=== PATIENT | female | born 1935 | race Caucasian/White ===

== ENCOUNTER 2017-09-15 23:16 | Inpatient (IN) | payer OTHER ==
[~2017-09-15] VITALS: Ht 157.5 cm; Wt 92.4 kg
[~2017-09-15 23:16] MED LIST: ASPIRIN EC325 MG PO; ASPIRIN81 M1 PO; BACTRIM,SEPT1 TABLET PO; BUMETANIDE 1 MG; BUMEX1 MG PO; CALCITRIOL0.25 MCG; COLCRYS0.6 MG PO; LIDODERM 5% P1 PATCH TD; LO-DOSE ASPIRIN81 M1 PO; LOTENSIN10 MG; LOTENSIN10 MG PO; LOW DOSE ASPIRI81 M2 PO; MULTIPLE VITAM1 EACH PO; PRAVASTATIN SOD40 MG; ROCALTROL0.25 MCG PO; SENNA-TIME S T1 EACH PO; TRAMADOL HCL50 MG PO; TRAMADOL-ACETA1 EACH; ULTRACET1 TABLET PO; VITAMIN D-32000 UNI1 PO; VITAMIN D1000 UNIT PO
[2017-09-16] VITALS (8 sets, daily range): BP systolic 129–180; BP diastolic 67–83
[2017-09-16 01:45] LABS: BASOPHIL COUNT 0.1 K/uL (0-0.1); EOSINOPHIL (%) 0.1 % (0-5); HEMATOCRIT 41.4 % (36.0-46.0); IMMATURE GRANULOCYTE (%) 0.6 % (0.0-0.7); IMMATURE GRANULOCYTE COUNT 0.1 K/uL; INSTRUMENT ABS NEUTROPHIL CT 15.2 K/uL; LYMPHOCYTE COUNT 1.3 K/uL (1.0-2.8); MCH 30.4 PG (29.0-34.0); MCHC 32.9 G/DL (30.0-36.0); MCV 92.4 FL (83-99); MEAN PLAT.VOLUME 10.3 uM^3 (9.5-12.4); MONOCYTE (%) 6.2 % (3-12); MONOCYTE COUNT 1.1 K/uL (0-0.8); NEUTROPHIL (%) 85.3 % (45-76); NEUTROPHIL COUNT 15.2 K/uL (1.8-6.4); PLATELET COUNT 215 K/uL (156-360); RBC DIS.WIDTH-CV 13.1 % (11.8-14.6); RBC DIS.WIDTH-SD 44.7 % (39-53); RED BLOOD COUNT 4.48 M/uL (3.80-5.20); WHITE BLOOD COUNT 17.8 K/uL (4.1-10.2)
[2017-09-16 01:57] LABS: CHLORIDE 105 mEq/L (99-109); SODIUM 138 mEq/L (136-147)
[2017-09-16 01:59] LABS: GLUCOSE 136 mg/dL (70-99)
[2017-09-16 02:00] LABS: ANION GAP 10 MEQ/L (2-14)
[2017-09-16 02:03] LABS: GFR ESTIMATE (CALCULATED) 45 mL/min/
[2017-09-16 02:04] LABS: TROP-I INTERPRETATION NEGATIVE; TROPONIN-I 0.01 ng/mL (0.0-0.30); UREA NITROGEN (BUN) 20 mg/dL (9-23)
[2017-09-16 02:05] LABS: CREATINE KINASE 478 IU/L (1-294)
[2017-09-16] MEDS ORDERED: ASPIR 8181 M1 PO (11:14)
[2017-09-17] VITALS (7 sets, daily range): BP systolic 118–206; BP diastolic 56–105
[2017-09-17 05:32] LABS: HEMATOCRIT 40.2 % (36.0-46.0); MCH 30.6 PG (29.0-34.0); MCHC 31.8 G/DL (30.0-36.0); MCV 96.2 FL (83-99); RBC DIS.WIDTH-CV 13.2 % (11.8-14.6); RBC DIS.WIDTH-SD 47.4 % (39-53); RED BLOOD COUNT 4.18 M/uL (3.80-5.20); WHITE BLOOD COUNT 8.9 K/uL (4.1-10.2)
[2017-09-17 05:53] LABS: ALKALINE PHOSPHATASE 108 IU/L (3-129); ANION GAP 8 MEQ/L (2-14); CHLORIDE 103 MEQ/L (99-109); GFR ESTIMATE (CALCULATED) 50 mL/min/; GLUCOSE 109 mg/dL (70-99); POTASSIUM 4.6 MEQ/L (3.7-5.4); SAMPLE HEMOLYSIS CHECK 1; SAMPLE ICTERIC CHECK 0; SAMPLE LIPEMIA CHECK 0; SODIUM 137 MEQ/L (136-147); UREA NITROGEN (BUN) 15 mg/dL (9-23)
[2017-09-17 06:07] LABS: MEAN PLAT.VOLUME 11.9 uM^3 (9.5-12.4); PLAT.SUFFICIENCY ADEQUATE
[2017-09-17 06:12] LABS: PLATELET COUNT 124 K/uL (156-360)
[2017-09-17 18:28] LABS: BASE EXCESS 2.7 mEq/L (-3 to +3); BICARBONATE 29.3 mEq/L (22-26); CARBOXY HGB 2.2 % (0-5); PCO2 53 mm Hg (35-45); PO2 107 mm Hg (80-100); SITE RR; pH 7.35 (7.35-7.45)
[2017-09-17 18:30] LABS: DEVICE HIGH FLOW CANNULA; O2 FLOW 8 L/MIN
[2017-09-17 18:31] LABS: TOTAL RESP RATE 22 resp/min
[2017-09-17 21:50] LABS: TROP-I INTERPRETATION NEGATIVE; TROPONIN-I 0.03 ng/mL (0.0-0.30)
[2017-09-18 03:48] VITALS: BP 131/64
[2017-09-18 06:27] LABS: MCH 31.1 PG (29.0-34.0); MCHC 33.1 G/DL (30.0-36.0); MCV 93.8 FL (83-99); PLATELET COUNT 143 K/uL (156-360); RBC DIS.WIDTH-CV 13.1 % (11.8-14.6); RBC DIS.WIDTH-SD 45.1 % (39-53); RED BLOOD COUNT 3.73 M/uL (3.80-5.20); WHITE BLOOD COUNT 15.1 K/uL (4.1-10.2)
[2017-09-18 06:44] LABS: ANION GAP 6 MEQ/L (2-14); CHLORIDE 102 MEQ/L (99-109); GFR ESTIMATE (CALCULATED) > 59 mL/min/; GLUCOSE 119 mg/dL (70-99); POTASSIUM 4.2 MEQ/L (3.7-5.4); SAMPLE HEMOLYSIS CHECK 0; SAMPLE ICTERIC CHECK 0; SAMPLE LIPEMIA CHECK 0; SODIUM 136 MEQ/L (136-147); UREA NITROGEN (BUN) 14 mg/dL (9-23)
[2017-09-18 09:00] VITALS: BP 128/58
[2017-09-18 13:00] VITALS: BP 130/61
[2017-09-18 20:00] VITALS: BP 134/65
[2017-09-18 23:55] VITALS: BP 171/82
[2017-09-19 04:00] VITALS: BP 126/58
[2017-09-19 08:00] VITALS: BP 111/69
[2017-09-19 11:44] VITALS: BP 135/63
[2017-09-19 14:01] LABS: HEMATOCRIT 38.9 % (36.0-46.0); MCH 29.9 PG (29.0-34.0); MCHC 32.4 G/DL (30.0-36.0); MCV 92.4 FL (83-99); MEAN PLAT.VOLUME 10.5 uM^3 (9.5-12.4); RBC DIS.WIDTH-CV 13.2 % (11.8-14.6); RBC DIS.WIDTH-SD 45.1 % (39-53); RED BLOOD COUNT 4.21 M/uL (3.80-5.20)
[2017-09-19 14:03] LABS: PLATELET COUNT 231 K/uL (156-360)
[2017-09-19 14:37] LABS: ANION GAP 12 MEQ/L (2-14); CHLORIDE 100 MEQ/L (99-109); POTASSIUM 3.8 MEQ/L (3.7-5.4); SAMPLE HEMOLYSIS CHECK 0; SAMPLE ICTERIC CHECK 0; SAMPLE LIPEMIA CHECK 0; SODIUM 139 MEQ/L (136-147)
[2017-09-19 14:43] LABS: GFR ESTIMATE (CALCULATED) 56 mL/min/; GLUCOSE 153 mg/dL (70-99); UREA NITROGEN (BUN) 22 mg/dL (9-23)
[2017-09-19 16:00] VITALS: BP 141/70
[2017-09-19 20:00] VITALS: BP 123/70
[2017-09-19 23:55] VITALS: BP 116/62
[2017-09-20 04:00] VITALS: BP 134/60
[2017-09-20 05:35] LABS: HEMATOCRIT 38.7 % (36.0-46.0); MCH 30.4 PG (29.0-34.0); MCHC 32.6 G/DL (30.0-36.0); MCV 93.3 FL (83-99); PLATELET COUNT 197 K/uL (156-360); RBC DIS.WIDTH-CV 13.2 % (11.8-14.6); RBC DIS.WIDTH-SD 45.2 % (39-53); RED BLOOD COUNT 4.15 M/uL (3.80-5.20); WHITE BLOOD COUNT 11.1 K/uL (4.1-10.2)
[2017-09-20 07:37] VITALS: BP 127/66
[2017-09-20 08:03] LABS: CHLORIDE 102 MEQ/L (99-109); GLUCOSE 142 mg/dL (70-99); SAMPLE HEMOLYSIS CHECK 0; SAMPLE ICTERIC CHECK 0; SAMPLE LIPEMIA CHECK 0; SODIUM 142 MEQ/L (136-147); UREA NITROGEN (BUN) 33 mg/dL (9-23)
[2017-09-20 09:09] LABS: ANION GAP 13 MEQ/L (2-14); GFR ESTIMATE (CALCULATED) 50 mL/min/
[2017-09-20 11:59] VITALS: BP 130/65
[2017-09-20 16:30] VITALS: BP 128/62
[2017-09-20 19:46] VITALS: BP 154/82
[2017-09-20 23:34] VITALS: BP 136/76
[2017-09-21] VITALS (11 sets, daily range): BP systolic 127–172; BP diastolic 65–92
[2017-09-21 16:13] LABS: BASE EXCESS 5.1 mEq/L (-3 to +3); BICARBONATE 32.4 mEq/L (22-26); CARBOXY HGB 2.2 % (0-5); METHEMOGLOBIN 1.7 % (0-1.5); pH 7.34 (7.35-7.45)
[2017-09-21 16:14] LABS: PCO2 60 mm Hg (35-45); PO2 72 mm Hg (80-100)
[2017-09-21 16:15] LABS: HEMOGLOBIN 12.1 (11.9-15.5)
[2017-09-21 16:19] LABS: POINT-OF-CARE METER ID UU14174216; POINT-OF-CARE USER ID NUTSLF44
[2017-09-21 18:46] LABS: METH RESISTANT S AUREUS PCR NEGATIVE (NEGATIVE)
[2017-09-21 18:52] LABS: PROBE CHECK PASS; SPECIMEN PROCESSING CONTROL PASS
[2017-09-22] VITALS (24 sets, daily range): BP systolic 125–156; BP diastolic 58–87
[2017-09-22 05:28] LABS: EOSINOPHIL (%) 0 % (0-5); HEMATOCRIT 37.2 % (36.0-46.0); IMMATURE GRANULOCYTE (%) 0.5 % (0.0-0.7); IMMATURE GRANULOCYTE COUNT 0.1 K/uL; LYMPHOCYTE COUNT 0.6 K/uL (1.0-2.8); MCHC 32.8 G/DL (30.0-36.0); MCV 94.7 FL (83-99); MEAN PLAT.VOLUME 10.6 uM^3 (9.5-12.4); MONOCYTE (%) 9.1 % (3-12); MONOCYTE COUNT 1.6 K/uL (0-0.8); NEUTROPHIL (%) 86.9 % (45-76); PLATELET COUNT 302 K/uL (156-360); RBC DIS.WIDTH-CV 13.3 % (11.8-14.6); RBC DIS.WIDTH-SD 47.1 % (39-53); RED BLOOD COUNT 3.93 M/uL (3.80-5.20); WHITE BLOOD COUNT 17.2 K/uL (4.1-10.2)
[2017-09-22 05:53] LABS: ANION GAP 13 MEQ/L (2-14); CHLORIDE 107 MEQ/L (99-109); GFR ESTIMATE (CALCULATED) 45 mL/min/; GLUCOSE 161 mg/dL (70-99); POTASSIUM 3.9 MEQ/L (3.7-5.4); SAMPLE HEMOLYSIS CHECK 0; SAMPLE ICTERIC CHECK 0; SAMPLE LIPEMIA CHECK 0
[2017-09-22 05:54] LABS: SODIUM 150 MEQ/L (136-147); UREA NITROGEN (BUN) 50 mg/dL (9-23)
[2017-09-23] VITALS (23 sets, daily range): BP systolic 122–172; BP diastolic 60–101
[2017-09-23 06:05] LABS: BASOPHIL COUNT 0.1 K/uL (0-0.1); EOSINOPHIL (%) 0 % (0-5); HEMATOCRIT 40.7 % (36.0-46.0); IMMATURE GRANULOCYTE (%) 1.7 % (0.0-0.7); IMMATURE GRANULOCYTE COUNT 0.3 K/uL; INSTRUMENT ABS NEUTROPHIL CT 16.8 K/uL; MCH 29.6 PG (29.0-34.0); MCV 95.8 FL (83-99); MEAN PLAT.VOLUME 10.8 uM^3 (9.5-12.4); MONOCYTE COUNT 1.8 K/uL (0-0.8); NEUTROPHIL (%) 84.2 % (45-76); NEUTROPHIL COUNT 16.8 K/uL (1.8-6.4); PLATELET COUNT 309 K/uL (156-360); RBC DIS.WIDTH-CV 13.4 % (11.8-14.6); RBC DIS.WIDTH-SD 47.8 % (39-53); RED BLOOD COUNT 4.25 M/uL (3.80-5.20); WHITE BLOOD COUNT 19.9 K/uL (4.1-10.2)
[2017-09-23 06:26] LABS: ANION GAP 11 MEQ/L (2-14); CHLORIDE 113 MEQ/L (99-109); GFR ESTIMATE (CALCULATED) > 59 mL/min/; GLUCOSE 125 mg/dL (70-99); MAGNESIUM 2.7 mg/dl (1.3-2.7); SAMPLE HEMOLYSIS CHECK 0; SAMPLE ICTERIC CHECK 0; SAMPLE LIPEMIA CHECK 0; SODIUM 153 MEQ/L (136-147); UREA NITROGEN (BUN) 45 mg/dL (9-23)
[2017-09-23 14:32] LABS: ANION GAP 9 MEQ/L (2-14); CHLORIDE 113 MEQ/L (99-109); GFR ESTIMATE (CALCULATED) > 59 mL/min/; GLUCOSE 128 mg/dL (70-99); POTASSIUM 4.3 MEQ/L (3.7-5.4); SAMPLE HEMOLYSIS CHECK 0; SAMPLE ICTERIC CHECK 0; SAMPLE LIPEMIA CHECK 0; SODIUM 153 MEQ/L (136-147); UREA NITROGEN (BUN) 48 mg/dL (9-23)
[2017-09-24] VITALS (24 sets, daily range): BP systolic 79–157; BP diastolic 41–77
[2017-09-24 06:25] LABS: BASOPHIL COUNT 0.1 K/uL (0-0.1); EOSINOPHIL (%) 0 % (0-5); HEMATOCRIT 42.6 % (36.0-46.0); IMMATURE GRANULOCYTE (%) 3.8 % (0.0-0.7); IMMATURE GRANULOCYTE COUNT 0.8 K/uL; INSTRUMENT ABS NEUTROPHIL CT 16.9 K/uL; LYMPHOCYTE COUNT 1.2 K/uL (1.0-2.8); MCH 29.5 PG (29.0-34.0); MCV 98.2 FL (83-99); MONOCYTE (%) 8.6 % (3-12); MONOCYTE COUNT 1.8 K/uL (0-0.8); NEUTROPHIL (%) 81.6 % (45-76); NEUTROPHIL COUNT 16.9 K/uL (1.8-6.4); PLATELET COUNT 322 K/uL (156-360); RBC DIS.WIDTH-CV 13.3 % (11.8-14.6); RBC DIS.WIDTH-SD 49.1 % (39-53); RED BLOOD COUNT 4.34 M/uL (3.80-5.20); WHITE BLOOD COUNT 20.7 K/uL (4.1-10.2)
[2017-09-24 06:45] LABS: ANION GAP 9 MEQ/L (2-14); CHLORIDE 117 MEQ/L (99-109); GFR ESTIMATE (CALCULATED) > 59 mL/min/; GLUCOSE 144 mg/dL (70-99); MAGNESIUM 2.7 mg/dl (1.3-2.7); POTASSIUM 4.2 MEQ/L (3.7-5.4); SAMPLE HEMOLYSIS CHECK 0; SAMPLE ICTERIC CHECK 0; SAMPLE LIPEMIA CHECK 0; SODIUM 159 MEQ/L (136-147); UREA NITROGEN (BUN) 44 mg/dL (9-23)
[2017-09-24 18:41] LABS: BASE EXCESS 6.9 mEq/L (-3 to +3); BICARBONATE 38.8 mEq/L (22-26); CARBOXY HGB 2.3 % (0-5); METHEMOGLOBIN 1.7 % (0-1.5); PCO2 104 mm Hg (35-45); PO2 65 mm Hg (80-100); pH 7.18 (7.35-7.45)
[2017-09-24 18:42] LABS: COMMENTS - BLOOD GASES A+C+; DEVICE NCHH; SITE RR
[2017-09-24 20:09] LABS: CARBOXY HGB 2.2 % (0-5); METHEMOGLOBIN 1.6 % (0-1.5); PCO2 > 128 mm Hg (35-45); PO2 130 mm Hg (80-100); pH 7.04 (7.35-7.45)
[2017-09-24 20:10] LABS: COMMENTS - BLOOD GASES A+C+; DEVICE VENT; FI02 100 %; MODE SPONT; PEEP 5 CM/H20; PRES. SUPPORT 15 CM/H2O; SITE RR
== END 2017-09-24 22:52 | DRG 551 ==
LOC: TRA 23:16 → EME 23:16 → EDOF 09-16 04:07 → 4WEST 09-16 04:07 → 4EAST 09-16 04:07 → ENRESERV 09-16 04:11 → 4EAST 09-16 05:06 → ENRESERV 09-21 17:01 → 4WEST 09-21 17:08
PROVIDERS: Emergency Medicine; Internal Medicine Critical Care Medicine; Surgery; Thoracic Surgery (Cardiothoracic Vascular Surgery)
PROC: 0HQFXZZ Repair Right Hand Skin, External Approach (ICD-10-PCS; principal; 2017-09-16)
PROC: 0T7D7ZZ Dilation of Urethra, Via Natural or Artificial Opening (ICD-10-PCS; 2017-09-21)
DX: S12.600A Unspecified displaced fracture of seventh cervical vertebra, initial encounter for closed fracture (principal); S12.590A Other displaced fracture of sixth cervical vertebra, initial encounter for closed fracture; J96.01 Acute respiratory failure with hypoxia; S22.20XA Unspecified fracture of sternum, initial encounter for closed fracture; S22.019A Unspecified fracture of first thoracic vertebra, initial encounter for closed fracture; S22.029A Unspecified fracture of second thoracic vertebra, initial encounter for closed fracture; S42.002A Fracture of unspecified part of left clavicle, initial encounter for closed fracture; S22.41XA Multiple fractures of ribs, right side, initial encounter for closed fracture; I48.92 Unspecified atrial flutter; M17.0 Bilateral primary osteoarthritis of knee; W10.9XXA Fall (on) (from) unspecified stairs and steps, initial encounter; J18.9 Pneumonia, unspecified organism; R13.10 Dysphagia, unspecified; E87.0 Hyperosmolality and hypernatremia; I27.81 Cor pulmonale (chronic); I11.0 Hypertensive heart disease with heart failure; I48.91 Unspecified atrial fibrillation; K22.2 Esophageal obstruction; K22.0 Achalasia of cardia; M25.512 Pain in left shoulder; I48.0 Paroxysmal atrial fibrillation; E87.2 Acidosis; J98.11 Atelectasis; G89.29 Other chronic pain; M54.9 Dorsalgia, unspecified; E66.9 Obesity, unspecified; I08.0 Rheumatic disorders of both mitral and aortic valves; K21.9 Gastro-esophageal reflux disease without esophagitis; E78.5 Hyperlipidemia, unspecified; J98.01 Acute bronchospasm; R00.0 Tachycardia, unspecified; D72.829 Elevated white blood cell count, unspecified; M06.9 Rheumatoid arthritis, unspecified; R40.2412 Glasgow coma scale score 13-15, at arrival to emergency department; M19.90 Unspecified osteoarthritis, unspecified site; Z96.653 Presence of artificial knee joint, bilateral; Z91.040 Latex allergy status; Z85.3 Personal history of malignant neoplasm of breast; Z90.12 Acquired absence of left breast and nipple; Y92.9 Unspecified place or not applicable; Y93.9 Activity, unspecified; Z90.49 Acquired absence of other specified parts of digestive tract; Z90.710 Acquired absence of both cervix and uterus; Z88.8 Allergy status to other drugs, medicaments and biological substances; Z68.38 Body mass index [BMI] 38.0-38.9, adult; Z79.82 Long term (current) use of aspirin
CPT/HCPCS: 36600; 71010; 71020; 71260; 72040; 72070; 72125; 72128; 73030; 73130; 74230; 76000; 80048; 80048 91; 80053; 82330; 82550; 82803; 82948; 83735; 83880; 84100; 84484; 85025; 85027; 87641; 92526 GN; 92610 GN; 92611 GN; 93005; 93306; 94002; 94010; 94640; 94640 76; 94660; 94667; 94668; 94760; 94799; 97530 GO; 97530 GP; 99202; 99281; 99285; A6212; C1769; C9113; J1170; J1644; J1940; J1956; J2270; J2405; J2920; J2930; J3010; J7030; J7040; J7050; J7120; J7512